=== PATIENT | male | born 1990 | race African-American/Black ===

== ENCOUNTER 2016-10-23 00:48 | Emergency (ER) | payer MEDICAID ==
[~2016-10-23] VITALS: Ht 177.8 cm; Wt 75.0 kg
[2016-10-23] MEDS ORDERED: LORAZEPAM 2MG/ML CPJ IM ONE (01:15)
[2016-10-23] MEDS ORDERED: OLANZAPINE 10 MG/VIAL IM ONE ×2 (01:15→02:45)
[2016-10-23] MEDS ORDERED: DIPHENHYDRAMINE 50MG/ML VIAL IM ONE (01:30)
[2016-10-23 02:20] LABS: BASOPHILS % 0.6 % (0.0-2.0); HEMATOCRIT. 34.4 % (42.0-52.0); HEMOGLOBIN. 11.5 g/dL (14.0-18.0); LYMPHOCYTES % 19.5 % (20.0-50.0); MEAN CORPUSCULAR HEMOGLOBIN 28.6 pg (28.0-32.0); MEAN CORPUSCULAR VOLUME 85.4 fL (80.0-94.0); MEAN PLATELET VOLUME 8.4 fl (7.4-10.4); MONOCYTES % 9.4 % (2.0-8.0); NEUTROPHILS % 69.5 % (40.0-76.0); PLATELET 204 x1000/uL (130-400); RED BLOOD CELL COUNT 4.03 mill/uL (4.7-6.1); RED CELL DISTRIBUTION WIDTH 13.4 % (11.6-14.6)
[2016-10-23 02:32] LABS: CHLORIDE 107 mEq/L (98-107)
[2016-10-23 02:38] LABS: CARBON DIOXIDE 25 mEq/L (21-32); ETHANOL BLOOD < 10 mg/dL
[2016-10-23] MEDS ORDERED: LORAZEPAM 2MG/ML CPJ IV ONE (02:45)
[2016-10-23 12:38] LABS: *AMPHETAMINES SCREEN URINE PRESUMTIVE POSITIVE (NEGATIVE); *BARBITURATES SCREEN URINE NEGATIVE (NEGATIVE); *BENZODIAZEPINES SCREEN URINE NEGATIVE (NEGATIVE); *COCAINE SCREEN URINE NEGATIVE (NEGATIVE); CANNABINOID URINE SCREEN PRESUMTIVE POSITIVE (NEGATIVE); METHADONE URINE SCREEN NEGATIVE (NEGATIVE); OPIATES URINE SCREEN NEGATIVE (NEGATIVE); PHENCYCLIDINE URINE SCREEN NEGATIVE (NEGATIVE)
[2016-10-23 13:40] VITALS: BP 130/81
== END 2016-10-23 13:52 | disposition home or self-care (01) ==
LOC: ER 00:59
DX: F23 Brief psychotic disorder (principal); F31.9 Bipolar disorder, unspecified; F15.10 Other stimulant abuse, uncomplicated; F12.10 Cannabis abuse, uncomplicated; Z91.14 Patient's other noncompliance with medication regimen; Z20.6 Contact with and (suspected) exposure to human immunodeficiency virus [HIV]
CPT/HCPCS: 36415; 71010; 80048; 80305; 80307; 80329; 85025; 93005; 96372; 99285; G0482; J1200; J2060; J3490; Z7610